=== PATIENT | female | born 1945 | race Caucasian/White ===

== ENCOUNTER 2024-01-16 12:08 | Emergency (ER) | payer OTHER ==
--- OUTSIDE RECORDS SUMMARY | 2024-01-16 12:12 | XMS REPORT | Continuity of Care Document ---
Author Name Unknown Address [address] [facility] [place] [address] [facility] Address [address] [facility] [place] [address] Care Team Providers Care Unbundler Name Role Phone Deni SKAGGS, Alfredo Walsh Primary Care Physician PHILIPP SINGH Attending Clinician Unavailab PHILIPP Orr Attending Clinician Unavailab Alfredo Winn MD Attending Clinician + [phone] Lab, Ang - Db Attending Clinician Unavailable ALFREDO CHEEMA Attending Clinician Alfredo Sheehan MD Attending Clinician + [phone] GEOVANNI SCOTT Attending Clinician Unavailable Geovanni Clifton Attending Clinician [phone] Neema Bethea MA Attending Clinician Unavail able Lucrecia Whitley Attending Clinician [phone] LUCRECIA ZAVALA Attending Clinician Unavailable JAMEY ARAGON Attending Clinician Unavailable Jamey Ballesteros Attending Clinician +[phone] Unknown, Attending Attending Clinician Unavailab lily Wan Unassigned, [place] Attending Clinician U maximoailfrank WALLS_GCBZW_Mindy_S Attending Clinician UnavailTori Peoples PA-C Attending Clinician +[phone] [facility] Attending Clinician Unavailable MARJORIE CHAIDEZ Attending Clinician Unavailable MARJORIE CHAIDEZ Attending Clinician Unavailable Ila White NP Attending Clinician + [phone] Adelaida Garza MD Attending Clinician +[phone] ADELAIDA GARZA Attending Clinician Unavailable ILA WHITE Attending Clinician Unavaila ble Lab, Ang - Db Attending Clinician Unavailable CHARMAINE STEWART Attending Clinician Unavailable Charmaine Stewart MD Attending Clinician [phone] Keron Zimmerman MD Attending Clinician [phone] Kavitha Phelps RN Attending Clinician Unavailab Esa Shaikh DO Attending Clinician [phone] Jeanine Santos DO Attending Clinician +[phone] ESA HINSON Attending Clinician Unavailable MACY MCMILLAN Attending Clinician Unavailable Macy Park Attending Clinician [phone] Radiology Attending Clinician Unavailable RADIOLOGY Attending Clinician Unavailable Marcus Lockett MD Attending Clinician [phone] Gilberto_S_CHERELLE Attending Clinician Unavailable Ige-Odunjose_J_AH Attending Clinician Unavailable GEOVANNI SCOTT Admitting Clinician Unavailable GC_GCBZW_Kadiyala_S Admitting Clinician Unavaila PHILIPP [place] Admitting Clinician Unavailab Philipp Orr MD Admitting Clinician [phone] Jeanine Santos DO Admitting Clinician [phone] JEANINE SANTOS Admitting Clinician Unavailable Kelsey Admitting Clinician Unavailable Ige-Sobeida_J_AH Admitting Clinician Unavailable Payers Payer Name Policy Type Policy Number Effective Date Expirati on Date Source [facility] ([facility]IC[facility] REPLACEMENT/ADVANT AGE - HMO) [id number] 2019 00:00:00 Problems Condition Name Condition Details Condition Category Status Onset Date Resolution Date Last Treatment Date Treating Clinician Comments Source Bronchitis Bronchitis Disease Active 09-28 00:00: 00 [facility] Neck fullness Neck fullness Disease Active 09-28 00:00: 00 [facility] Oropharyng eal dysphagia Oropharyng eal dysphagia Disease Active 09-28 00:00: 00 [facility] Family history of thyroid cancer Family history of thyroid cancer Disease Active 2024-0 5-14 00:00: 00 [facility] Rash and other nonspecifi c skin eruption Rash and other nonspecifi c skin eruption Disease Active 0 4-16 00:00: 00 [facility] Essential hypertensi on Essential hypertensi on Disease Active 0 4-16 00:00: 00 [facility] Condyloma acuminatum of vulva Condyloma acuminatum of vulva Disease Active 0 8-17 00:00: 00 [facility] Vulvar mass Vulvar mass Disease Active 0 6-07 00:00: 00 [facility] BMI 38.0-38.9, adult BMI 38.0-38.9, adult Disease Active 0 6-07 00:00: 00 [facility] Chest pressure Chest pressure Disease Active 0 5-25 00:00: 00 [facility] Morbid obesity Morbid obesity Disease Active 0 5-25 00:00: 00 [facility] Family history of early CAD Family history of early CAD Disease Active 0 5-25 00:00: 00 [facility] Leg edema Leg edema Disease Active 0 5-25 00:00: 00 [facility] PAD (periphera l artery disease) PAD (periphera l artery disease) Disease Active 0 5-25 00:00: 00 [facility] Chronic hepatitis C Chronic hepatitis C Disease Active 0 - 00:00: 00 [facility] Fibromyalg ia Fibromyalg ia Disease Active 0 -23 00:00: 00 [facility] Lupus erythemato liu Lupus erythemato liu Disease Active 0 -23 00:00: 00 [facility] Seasonal allergies Seasonal allergies Disease Active 0 -23 00:00: 00 [facility] Senile purpura Senile purpura Disease Active 0 3-23 00:00: 00 [facility] Peripheral vascular disease Peripheral vascular disease Disease Active 0 6-25 00:00: 00 [facility] Severe obesity Severe obesity Disease Active 6-25 00:00: 00 [facility] Allergies, Adverse Reactions, Alerts Allergy Name Allergy Type Status Severity Reaction(s) Onset Date Inactive Date Treating Clinician Comments Source IBUPROFE N DRUG INGREDI Active Other-Cmnt 01-22 00:00: 00 [facility] Ibuprofe n Propensi ty to adverse reaction s Active Other - See comments 01-22 00:00: 00 Pain [facility] GADOLINI UM-CONTA INING CONTRAST MEDIA Drug Class Active High SOB 8 00:00: 00 [facility] IODINATE D CONTRAST MEDIA Drug Class Active High SOB 8 00:00: 00 [facility] Gadolini um-Conta ining Contrast Media Drug Allergy Active Swelling 01-12 00:00: 00 [facility] Iodinate d Contrast Media Drug Allergy Active Swelling 01-12 00:00: 00 [facility] Aspirin Drug Allergy Active Anaphylaxis 06-24 00:00: 00 [facility] Seafood/ Fish Propensi ty to adverse reaction s Active Unknown - See comments 06-24 00:00: 00 [facility] Peanut Propensi ty to adverse reaction s Active Swelling 06-24 00:00: 00 [facility] ASPIRIN DRUG INGREDI Active High Swelling 06-24 00:00: 00 [facility] SEAFOOD/ FISH Food Active Unknown-Cmnt 06-24 00:00: 00 [facility] PEANUT DRUG INGREDI Active Swelling 06-24 00:00: 00 [facility] Aspirin Allergy to substanc e Active Moderate to severe Anaphylaxis [facility] Social History Social Habit Start Date Stop Date Quantity Comments Source Gender identity [facility] Alcoholic beverage intake 2024-01-13 00:00:00 2024-01-13 00:00:00 Lifetime non-drinker (finding) [facility] History of Social function 2023-10-13 00:00:00 2023-10-13 00:00:00 [facility] Alcohol intake 2023-09-01 00:00:00 2023-09-01 00:00:00 Lifetime non-drinker (finding) [facility] Exposure to SARS-CoV-2 (event) 2022-09-27 00:00:00 2022-10-07 10:48:00 Not sure [facility] Tobacco use and exposure 2021-07-11 00:00:00 2021-07-11 00:00:00 Smokeless tobacco non-user [facility] Sex assigned at 1945 00:00:00 1945 00:00:00 [facility] Smoking Status Start Date Stop Date Source Never smoked tobacco [facility] Medications Ordered Medication Name Filled Medication Name Start Date Stop Date Current Medication? Ordering Clinician Indication Dosage Frequency Signature (SIG) Comments Components Source clindamycin 150 mg capsule 01-12 00:00: 00 Yes [id number] 150mg Take 1 capsule by mouth in the morning and 1 capsule at noon and 1 capsule in the evening. [facility] predniSONE 10 mg tablet 17 00:00: 00 Yes [id number] 10mg Take 1 tablet by mouth in the morning. [facility] FUROSEMIDE 40 mg tablet 10-05 00:00: 00 Yes [id number] 40mg TAKE ONE TABLET BY MOUTH EVERY MORNING AND EVENING [facility] AZITHROMYCI N 250 mg tablet 09-28 00:00: 00 10-12 00:00 :00 No [id number] 500MG on day 1, then 250mg days 2-5 [facility] pantoprazol e (PROTONIX) 40 mg EC tablet 09-28 00:00: 00 10-12 00:00 :00 No [id number] 40mg Take 1 tablet by mouth in the morning. [facility] benzonatate 200 mg capsule 09-28 00:00: 00 10-06 04:59 :00 No [id number] 200mg Take 1 capsule by mouth 3 (three) times daily as needed for Cough for up to 7 days. [facility] predniSONE 20 mg tablet 08-27 00:00: 00 10-12 00:00 :00 No [id number] Take one tablet daily for 6 days, then take half tablet daily for the next 6 days, then stop. [facility] triamcinolo ne acetonide 0.1 % ointment 08-27 00:00: 00 08-31 00:00 :00 No [id number] Apply to area(s) 2 (two) times daily for 14 days. [facility] diphenhydra mine HCl (BENADRYL ALLERGY ORAL) 2022-05 012 10:08: 25 Yes Take by mouth as needed. FOR LUPUS FLARE UPS [facility] diphenhydra mine HCl (BENADRYL ALLERGY ORAL) 907 10:14: 05 Yes Take by mouth as needed. FOR LUPUS FLARE UPS [facility] HYDROcodone -acetaminop hen (NORCO 5) 5-325 mg tablet 1 tablet 01-12 22:04: 34 Yes 1{tbl} 1 tablet, Oral, PRN, 1 dose, Starting on Thu01/12/23 at 1704, Until Discontinu ed, Routine, Pain (scale 7-10), DSU Recovery [facility] ibuprofen (IBU) tablet 800 mg 01-12 22:04: 34 Yes 800mg 800 mg, Oral, PRN, 1 dose, Starting on Thu01/12/23 at 1704, Until Discontinu ed, Routine, Pain (scale 4-6), DSU Recovery [facility] acetaminoph en (TYLENOL) tablet 650 mg 01-12 22:04: 34 Yes 650mg 650 mg, Oral, PRN, 1 dose, Starting on Thu01/12/23 at 1704, Until Discontinu ed, Routine, Pain (scale 1-3), DSU Recovery [facility] HYDROmorphO ne (DILAUDID) injection 0.2 mg 01-12 22:04: 34 Yes .2mg 0.2 mg, Slow IV Push, Q5MIN PRN, 10 doses, Starting on Thu01/12/23 at 1704, Until Discontinu ed, Routine, Pain (scale 7-10), PACU
Us e approved by (Faculty): PACU USE -ANESTHESI A SERVICE-HY DROMORPHON E INJECTIONS [facility] FENTanyl PF (SUBLIMAZE (PF)) injection 25 mcg 01-12 22:04: 34 Yes 25ug 25 mcg, Slow IV Push, Q5MIN PRN, 4 doses, Starting on Thu01/12/23 at 1704, Until Discontinu ed, Routine, Pain (scale 4-6), PACU [facility] ondansetron (ZOFRAN (PF)) injection 4 mg 01-12 22:04: 34 Yes 4mg 4 mg, Slow IV Push, PRN, 1 dose, Starting on Thu01/12/23 at 1704, Until Discontinu ed, Routine, Nausea and Vomiting (N/V), PACU [facility] ceFAZolin (ANCEF) 2,000 mg in NaCl 0.9% (NS) 100 mL MINI-BAG 01-12 22:04: 32 01-13 22:03 :32 No 2000mg 2,000 mg, Intravenou s, O.R. HOLDING ONCE, Starting on Thu01/12/23 at 1704, Until Thu01/13/23 at 1703, Administer over 30 Minutes, 100 mL, DSU Pre-op
Reason for Anti-Infec tive: Surgical Prophylaxi s
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
Duration of therapy: within 24 hours of surgery [facility] silver sulfADIAZIN E (SILVADENE) 1 % cream 01-12 21:16: 00 01-12 22:10 :58 No PRN, Starting on Thu01/12/23 at 1616, Until Thu01/12/23 at 1710, Routine, Intra-op [facility] bupivacaine (preserv free) (SENSORCAIN E MPF) 0.25 % (2.5 mg/mL) injection 01-12 21:16: 00 01-12 22:10 :58 No PRN, Starting on Thu01/12/23 at 1616, Until Thu01/12/23 at 1710, Routine, Intra-op [facility] diphenhydra mine HCl (BENADRYL ALLERGY ORAL) 01-12 18:42: 40 10-12 00:00 :00 No Take by mouth as needed. FOR LUPUS FLARE UPS [facility] furosemide 40 mg tablet 01-12 00:00: 00 10-05 00:00 :00 No [id number] 40mg TAKE ONE TABLET BY MOUTH EVERY MORNING AND EVENING [facility] fluconazole 200 mg tablet 01-12 00:00: 00 08-31 00:00 :00 No [id number] 200mg Take 1 tablet by mouth in the morning. [facility] nystatin 100,000 unit/gram powder 01-12 00:00: 00 08-31 00:00 :00 No [id number] Apply to the affected areas (abdomen) 2 to 3 times daily until healing is complete [facility] acetaminoph en (TYLENOL) 325 mg tablet 01-12 00:00: 00 08-31 00:00 :00 No [id number] 650mg Take 2 tablets by mouth every 6 (six) hours as needed for Pain (scale 1-3). [facility] ibuprofen 600 mg tablet 01-12 00:00: 00 08-31 00:00 :00 No [id number] 600mg Take 1 tablet by mouth every 6 (six) hours as needed for Pain (scale 4-6) or Alternate with Abernathy for pain scale 4-6. [facility] HYDROcodone -acetaminop hen 5-325 mg tablet 01-12 00:00: 00 01-20 04:59 :00 No [id number] 1{tbl} Take 1 tablet by mouth every 6 (six) hours as needed for Pain (scale 7-10) for up to 7 days. Indication s: acute pain [facility] diphenhydra mine HCl (BENADRYL ALLERGY ORAL) 01-06 09:56: 46 Yes Take by mouth as needed. FOR LUPUS FLARE UPS [facility] lidocaine 2 % mucosal jelly 10-24 00:00: 00 08-31 00:00 :00 No [id number] 5mL Apply 2.5 Inches to area(s) every 6 (six) hours as needed (Pain). Apply 5mls to area every 6 hours as needed fro pain [facility] lidocaine 2 % mucosal jelly 10-22 00:00: 00 10-24 00:00 :00 No [id number] 5mL Apply 2.5 Inches to area(s) every 6 (six) hours as needed (Pain). Apply 5mls to area every 6 hours as needed fro pain [facility] gabapentin 400 mg capsule 10-07 11:01: 50 10-07 00:00 :00 No 400mg Take 400 mg by mouth as needed. [facility] traMADoL 50 mg tablet 10-07 11:01: 47 10-07 00:00 :00 No 50mg Take 50 mg by mouth every 6 (six) hours as needed. [facility] gabapentin 400 mg capsule 12-09 10:23: 46 Yes 400mg Take 400 mg by mouth as needed. [facility] traMADoL 50 mg tablet 12-09 10:22: 45 Yes 50mg Take 50 mg by mouth every 6 (six) hours as needed. [facility] furosemide 40 mg tablet 11-27 00:00: 00 01-12 00:00 :00 No [id number] 40mg Take 1 tablet by mouth every morning and evening. [facility] BENADRYL ALLERGY 25 mg tablet 06-24 00:00: 00 10-07 00:00 :00 No 50mg Take 2 tablets by mouth every 6 (six) hours as needed for Itching or Allergies. [facility] furosemide 20 mg tablet furosemide 20 mg tablet No furosemide 20 mg tablet [facility] gabapentin 300 mg capsule TAKE 1 CAPSULE BY MOUTH TWICE DAILY gabapentin 300 mg capsule TAKE 1 CAPSULE BY MOUTH TWICE DAILY No gabapentin 300 mg capsule TAKE 1 CAPSULE BY MOUTH TWICE DAILY [facility] Immunizations Ordered Immunization Name Filled Immunization Name Date Status Comments Source TDAP 2021-07-11 00:00:00 Completed [facility] TDAP 2021-07-11 00:00:00 Completed [facility] TDAP 2021-07-11 00:00:00 Completed [facility] TDAP 2021-07-11 00:00:00 Completed [facility] TDAP 2021-07-11 00:00:00 Completed [facility] TDAP 2021-07-11 00:00:00 Completed [facility] TDAP 2021-07-11 00:00:00 Completed [facility] TDAP 2021-07-11 00:00:00 Completed [facility] TDAP 2021-07-11 00:00:00 Completed [facility] TDAP 2021-07-11 00:00:00 Completed [facility] TDAP 2021-07-11 00:00:00 Completed [facility] TDAP 2021-07-11 00:00:00 Completed [facility] TDAP 2021-07-11 00:00:00 Completed [facility] TDAP 2021-07-11 00:00:00 Completed [facility] TDAP 2021-07-11 00:00:00 Completed [facility] TDAP 2021-07-11 00:00:00 Completed [facility] TDAP 2021-07-11 00:00:00 Completed [facility] TDAP 2021-07-11 00:00:00 Completed [facility] TDAP 2021-07-11 00:00:00 Completed [facility] TDAP 2021-07-11 00:00:00 Completed [facility] TDAP 2021-07-11 00:00:00 Completed [facility] TDAP 2021-07-11 00:00:00 Completed [facility] TDAP 2021-07-11 00:00:00 Completed [facility] TDAP 2021-07-11 00:00:00 Completed [facility] TDAP 2021-07-11 00:00:00 Completed [facility] TDAP 2021-07-11 00:00:00 Completed [facility] TDAP 2021-07-11 00:00:00 Completed [facility] TDAP 2021-07-11 00:00:00 Completed [facility] TDAP 2021-07-11 00:00:00 Completed [facility] TDAP 2021-07-11 00:00:00 Completed [facility] TDAP 2021-07-11 00:00:00 Completed [facility] TDAP 2021-07-11 00:00:00 Completed [facility] TDAP 2021-07-11 00:00:00 Completed [facility] TDAP 2021-07-11 00:00:00 Completed [facility] TDAP 2021-07-11 00:00:00 Completed [facility] TDAP 2021-07-11 00:00:00 Completed [facility] TDAP 2021-07-11 00:00:00 Completed [facility] TDAP 2021-07-11 00:00:00 Completed [facility] TDAP 2021-07-11 00:00:00 Completed [facility] TDAP 2021-07-11 00:00:00 Completed [facility] TDAP 2021-07-11 00:00:00 Completed [facility] TDAP Unknown Completed [facility] TDAP Unknown Completed [facility] TDAP Unknown Completed [facility] TDAP Unknown Completed [facility] TDAP Unknown Completed [facility] TDAP Unknown Completed [facility] TDAP Unknown Completed [facility] TDAP Unknown Completed [facility] TDAP Unknown Completed [facility] TDAP Unknown Completed [facility] TDAP Unknown Completed [facility] TDAP Unknown Completed [facility] TDAP Unknown Completed [facility] TDAP Unknown Completed [facility] TDAP Unknown Completed [facility] TDAP Unknown Completed [facility] TDAP Unknown Completed [facility] TDAP Unknown Completed [facility] TDAP Unknown Completed [facility] TDAP Unknown Completed [facility] TDAP Unknown Completed [facility] TDAP Unknown Completed [facility] TDAP Unknown Completed [facility] TDAP Unknown Completed [facility] TDAP Unknown Completed [facility] TDAP Unknown Completed [facility] Vital Signs Vital Name Observation Time Observation Value Comments Noé levy Systolic blood pressure 2024-01-13 13:58:00 126 mm[Hg] [facility] Diastolic blood pressure 2024-01-13 13:58:00 75 mm[Hg] [facility] Heart rate 2024-01-13 13:58:00 78 /min [facility] Body temperature 2024-01-13 13:58:00 36.83 Donna [facility] Body height 2024-01-13 13:58:00 160 cm [facility] Body weight 2024-01-13 13:58:00 99.791 kg [facility] BMI 2024-01-13 13:58:00 38.97 kg/m2 [facility] Systolic blood pressure 2023-11-02 18:02:00 142 mm[Hg] [facility] Diastolic blood pressure 2023-11-02 18:02:00 80 mm[Hg] [facility] Heart rate 2023-11-02 18:01:00 80 /min [facility] Body temperature 2023-11-02 18:01:00 36.61 Donna [facility] Body weight 2023-11-02 18:01:00 101.606 kg [facility] BMI 2023-11-02 18:01:00 40.97 kg/m2 [facility] Systolic blood pressure 2023-10-13 15:25:00 141 mm[Hg] [facility] Diastolic blood pressure 2023-10-13 15:25:00 69 mm[Hg] [facility] Heart rate 2023-10-13 15:24:00 88 /min [facility] Body temperature 2023-10-13 15:24:00 36.78 Donna [facility] Body height 2023-10-13 15:24:00 157.5 cm [facility] Body weight 2023-10-13 15:24:00 101.152 kg [facility] BMI 2023-10-13 15:24:00 40.79 kg/m2 [facility] Systolic blood pressure 2023-09-29 19:39:00 153 mm[Hg] [facility] Diastolic blood pressure 2023-09-29 19:39:00 75 mm[Hg] [facility] Heart rate 2023-09-29 19:38:00 88 /min [facility] Body temperature 2023-09-29 19:38:00 37.17 Donna [facility] Respiratory rate 2023-09-29 19:38:00 18 /min [facility] Body height 2023-09-29 19:38:00 162.6 cm [facility] Body weight 2023-09-29 19:38:00 102.241 kg [facility] BMI 2023-09-29 19:38:00 38.69 kg/m2 [facility] Oxygen saturation in Arterial blood by Pulse oximetry 2023-09-29 19:38:00 98 /min [facility] Systolic blood pressure 2023-09-01 21:25:00 144 mm[Hg] [facility] Diastolic blood pressure 2023-09-01 21:25:00 66 mm[Hg] [facility] Heart rate 2023-09-01 21:25:00 85 /[facility] Body weight 2023-09-01 21:25:00 102.83 kg [facility] BMI 2023-09-01 21:25:00 38.91 kg/m2 [facility] Oxygen saturation in Arterial blood by Pulse oximetry 2023-09-01 21:25:00 94 /min [facility] Systolic blood pressure 2023-08-29 01:57:00 175 mm[Hg] [facility] Diastolic blood pressure 2023-08-29 01:57:00 78 mm[Hg] [facility] Heart rate 2023-08-29 01:57:00 89 /min [facility] Body temperature 2023-08-29 01:57:00 37.11 Donna [facility] Respiratory rate 2023-08-29 01:57:00 16 /min [facility] Body weight 2023-08-29 01:57:00 105.688 kg [facility] BMI 2023-08-29 01:57:00 39.99 kg/m2 [facility] Oxygen saturation in Arterial blood by Pulse oximetry 2023-08-29 01:57:00 95 /min [facility] Systolic blood pressure 2023-02-26 15:07:00 135 mm[Hg] [facility] Diastolic blood pressure 2023-02-26 15:07:00 68 mm[Hg] [facility] Heart rate 2023-02-26 15:07:00 72 /min [facility] Body temperature 2023-02-26 15:07:00 36.17 Donna [facility] Respiratory rate 2023-02-26 15:07:00 19 /min [facility] Body weight 2023-02-26 15:07:00 100.517 kg [facility] BMI 2023-02-26 15:07:00 38.04 kg/m2 [facility] Oxygen saturation in Arterial blood by Pulse oximetry 2023-02-26 15:07:00 97 /min [facility] Systolic blood pressure 2023-01-22 15:13:00 123 mm[Hg] [facility] Diastolic blood pressure 2023-01-22 15:13:00 73 mm[Hg] [facility] Heart rate 2023-01-22 15:13:00 74 /[facility] Body temperature 2023-01-22 15:13:00 36.44 Donna [facility] Respiratory rate 2023-01-22 15:13:00 18 /min [facility] Body weight 2023-01-22 15:13:00 99.61 kg [facility] BMI 2023-01-22 15:13:00 37.69 kg/m2 [facility] Oxygen saturation in Arterial blood by Pulse oximetry 2023-01-22 15:13:00 94 /min [facility] Oxygen saturation in Arterial blood by Pulse oximetry 2023-01-12 23:30:00 96 /min [facility] Systolic blood pressure 2023-01-12 23:00:00 131 mm[Hg] [facility] Diastolic blood pressure 2023-01-12 23:00:00 66 mm[Hg] [facility] Respiratory rate 2023-01-12 23:00:00 10 /min [facility] Heart rate 2023-01-12 22:04:00 68 /min [facility] Body temperature 2023-01-12 22:04:00 36.22 Donna [facility] Body height 2023-01-12 16:43:00 162.6 cm [facility] Body weight 2023-01-12 16:43:00 100.6 kg [facility] BMI 2023-01-12 16:43:00 38.07 kg/m2 [facility] Systolic blood pressure 2023-01-12 22:15:00 136 mm[Hg] General acute hospital Diastolic blood pressure 2023-01-12 22:15:00 67 mm[Hg] General acute hospital Respiratory rate 2023-01-12 22:15:00 12 /min [facility] Oxygen saturation in Arterial blood by Pulse oximetry 2023-01-12 22:15:00 100 /min General acute hospital Heart rate 2023-01-12 22:04:00 68 /min [facility] Body temperature 2023-01-12 22:04:00 36.22 Donna [facility] Body height 2023-01-12 16:43:00 162.6 cm [facility] Body weight 2023-01-12 16:43:00 100.6 kg [facility] BMI 2023-01-12 16:43:00 38.07 kg/m2 [facility] Body height 2022-12-29 16:44:00 157.2 cm [facility] Body weight 2022-12-29 16:44:00 100.336 kg [facility] BMI 2022-12-29 16:44:00 40.60 kg/m2 [facility] Systolic blood pressure 2022-12-29 16:28:00 133 mm[Hg] General acute hospital Diastolic blood pressure 2022-12-29 16:28:00 77 mm[Hg] General acute hospital Heart rate 2022-12-29 16:28:00 81 /min [facility] Body temperature 2022-12-29 16:28:00 36.17 Donna [facility] Respiratory rate 2022-12-29 16:28:00 19 /min [facility] Oxygen saturation in Arterial blood by Pulse oximetry 2022-12-29 16:28:00 97 /min General acute hospital Systolic blood pressure 2022-11-20 19:24:00 123 mm[Hg] General acute hospital Diastolic blood pressure 2022-11-20 19:24:00 69 mm[Hg] General acute hospital Heart rate 2022-11-20 19:24:00 76 /min [facility] Body temperature 2022-11-20 19:24:00 36.78 Donna [facility] Body height 2022-11-20 19:24:00 162.6 cm [facility] Body weight 2022-11-20 19:24:00 100.789 kg [facility] BMI 2022-11-20 19:24:00 38.14 kg/m2 [facility] Systolic blood pressure 2022-10-22 19:30:00 131 mm[Hg] General acute hospital Diastolic blood pressure 2022-10-22 19:30:00 69 mm[Hg] General acute hospital Heart rate 2022-10-22 19:26:00 84 /min [facility] Body temperature 2022-10-22 19:26:00 37 Donna [facility] Respiratory rate 2022-10-22 19:26:00 18 /min [facility] Body height 2022-10-22 19:26:00 162.6 cm [facility] Body weight 2022-10-22 19:26:00 103.511 kg [facility] BMI 2022-10-22 19:26:00 39.17 [facility] 2022-10-22 14:28:00 132 mm[Hg] General acute hospital Diastolic blood pressure 2022-10-22 14:28:00 73 mm[Hg] General acute hospital Heart rate 2022-10-22 14:28:00 76 /min [facility] Res[facility] rate 2022-10-22 14:28:00 18 /min [facility] Body height 2022-10-22 14:28:00 162.6 cm [facility] Body weight 2022-10-22 14:28:00 102.967 kg [facility] BMI 2022-10-22 14:28:00 38.96 kg/m2 [facility] Systolic blood pressure 2022-10-07 16:00:00 138 mm[Hg] General acute hospital Diastolic blood pressure 2022-10-07 16:00:00 79 mm[Hg] General acute hospital Heart rate 2022-10-07 16:00:00 84 /min [facility] Body temperature 2022-10-07 16:00:00 36.83 Donna [facility] Body height 2022-10-07 16:00:00 162.6 cm [facility] Body weight 2022-10-07 16:00:00 102.513 kg [facility] BMI 2022-10-07 16:00:00 38.79 kg/m2 [facility] Systolic blood pressure 2021-12-09 15:26:00 135 mm[Hg] General acute hospital Diastolic blood pressure 2021-12-09 15:26:00 66 mm[Hg] General acute hospital Heart rate 2021-12-09 15:26:00 77 /min [facility] Body temperature 2021-12-09 15:26:00 36.39 Donna [facility] Respiratory rate 2021-12-09 15:26:00 16 /min [facility] Body height 2021-12-09 15:26:00 162.6 cm [facility] Body weight 2021-12-09 15:26:00 105.008 kg [facility] BMI 2021-12-09 15:26:00 39.74 kg/m2 [facility] Oxygen saturation in Arterial blood by Pulse oximetry 2021-12-09 15:26:00 95 /min [place] [facility] BP Diastolic 2020-08-07 00:00:00 80 mm[Hg] [facility] Height 2020-08-07 00:00:00 64 [in_i] Granados ge [facility] BMI (Body Mass Index) 2020-08-07 00:00:00 39.3 kg/m2 [facility] BP Systolic 2020-08-07 00:00:00 130 mm[Hg] [facility] Body Weight 2020-08-07 00:00:00 229 [lb_av] Mario [facility] Procedures Procedure Date / Time Performed Performing Clinician Source CT SOFT TISSUE NECK WO CONTRAST 2023-10-19 14:10:02 Geovanni Scott [facility] HEAD NECK 2023-10-08 18:35:51 Geovanni Scott [facility] AUTHORIZATION FOR RELEASE OF PHI 2023-04-14 06:01:00 Doctor Unassigned, [place] [facility] WIDE LOCAL VULVAR LESION EXCISION 2023-01-12 20:02:00 Philipp Singh [facility] ABORH CONFIRMATION (LAB ONLY) 2023-01-12 17:43:00 Philipp Singh [facility] ABORH CONFIRMATION (LAB ONLY) 2023-01-12 17:43:00 Philipp Singh [facility] PROTHROMBIN TIME / INR 2023-01-12 17:13:00 Moustapha Norman [facility] HB ABO GROUPING 2023-01-12 17:13:00 Lupe Zimmerman [facility] PROTHROMBIN TIME / INR 2023-01-12 17:13:00 Moustapha Norman [facility] HB ABO GROUPING 2023-01-12 17:13:00 Lupe Zimmerman [facility] ASSIGNMENT OF BENEFITS 2023-01-12 16:20:51 Docto r Unassigned, [place] [facility] PAP SMEAR-LIQUID BASED-CP 2022-12-29 18:17:00 Lupe Zimmerman [facility] DISCLOSURE AND CONSENT, MEDICAL AND SURGICAL PROCEDURES 2022-12-29 05:01:00 Doctor Unassigned, [place] [facility] DOWNTIME AMBULATORY DOCUMENTS 2022-12-29 05:01:00 Doctor Unassigned, [place] [facility] DISCLOSURE AND CONSENT, MEDICAL AND SURGICAL PROCEDURES 2022-12-29 05:01:00 Doctor Unassigned, [place] [facility] DOWNTIME AMBULATORY DOCUMENTS 2022-12-29 05:01:00 Doctor Unassigned, [place] [facility] DISCLOSURE AND CONSENT MEDICAL & SURGICAL PROCEDURES - FEMALM 2022-11-20 05:01:00 Doctor Unassigned, [place] [facility] POCT TEST 2022-11-20 00:00:00 Adelaida Garza [facility] CONSENT/REFUSAL FOR DIAGNOSIS AND TREATMENT 2022-10-07 15:49:52 Doctor Unassigned, [place] [facility] MEDICATION CORRESPONDENCE 2021 05:01:00 Do ctor Unassigned, [place] [facility] Biopsy of Liver [facility] Tub[facility] Open Reduction of Fracture of Femur [facility] Tonsillectomy [facility] Ligation of Fallopian Tube [facility] Practice Screening for Malignant Neoplasm of Colon [facility] Encounters Start Date/Time End Date/Time Encounter Type Admission Type Attending Clinicians Care Facility Care Department Encounter ID Source 2024-01-14 00:00:00 2024-01-15 13:22:05 Telephone Alfredo Cheema [facility]?LUZRemy [facility] 1.2.840.114 350.1.13.10 4.2.7.2.686 [id number] [facility] 2024-01-14 00:00:00 2024-01-14 08:58:31 Telephone Deni Alfredo 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 Metalworker Visit Lab, Dayday Trammell Alfredo Cheema [facility], Dayday Trammell [facility] 1.2.840.114 350.1.13.10 4.2.7.2.686 [id number] [facility] 2024-01-13 10:00:00 2024-01-13 10:00:00 Outpatient R DENI ALFREDO [facility] [id number] [facility] 2024-01-13 09:45:00 2024-01-13 10:00:00 Office Visit [facility] 1..840.114 350.1.13.10 4.2.7.2.686 [id number] [facility] 2023-11-02 13:00:00 2023-11-02 13:15:00 Office Visit Alfredo Cheema [facility] 1..840.114 350.1.13.10 4.2.7.2.686 [id number] [facility] 2023-11-02 13:00:00 2023-11-02 13:00:00 Outpatient R TITADESMONDALFREDO [facility] [id number] [facility] 2023-10-19 08:54:23 2023-10-19 23:59:00 Outpatient R GEOVANNI SCOTT [facility] [id number] [facility] 2023-10-19 08:54:23 2023-10-19 23:59:00 Hospital Encounter Geovanni Scott [facility] 1.2.840.114 350.1.13.10 4.2.7.2.686 [id number] [facility] 2023-10-19 00:00:00 2023-10-19 14:41:26 Telephone Geovanni Scott [facility] 1.2.840.114 350.1.13.10 4.2.7.2.686 [id number] [facility] 2023-10-13 10:30:00 2023-10-13 11:00:00 Office Visit Alfredo Cheema [facility]?YOGESH [facility] 1.2840.114 350.1.13.10 4.2.7.2.686 [id number] [facility] 2023-10-13 10:30:00 2023-10-13 10:30:00 Outpatient R ALFREDO CHEEMA [facility] [id number] [facility] 2023-10-13 00:00:00 2023-10-13 09:17:24 Pre Visit Outreach Neema Bethea 1.2.840.114 350.1.13.10 4.2.7.2.686 [id number] [facility] 2023-10-09 00:00:00 2023-10-09 16:40:32 Telephone Geovanni Scott [facility]OS [facility] 1.2.840.114 350.1.13.10 4.2.7.2.686 [id number] [facility] 2023-10-08 12:31:20 2023-10-08 23:59:00 Outpatient R RAINAGEOVANNI Alberto [facility] [id number] [facility] 2023-10-08 12:31:20 2023-10-08 23:59:00 Hospital Encounter Geovanni Scott [facility] 1.2.840.114 350.1.13.10 4.2.7.2.686 [id number] [facility] 2023-10-06 08:30:00 2023-10-06 08:30:00 Outpatient R ALFREDO CHEEMA [facility] [id number] [facility] 2023-10-06 00:00:00 2023-10-06 07:52:20 Refill Deni Alfredo [facility] 1.2840.114 350.1.13.10 4.2.7.2.686 [id number] [facility] 2023-09-29 14:30:00 2023-09-29 15:07:58 Outpatient R GEOVANNI SCOTT [facility] [id number] [facility] 2023-09-29 14:30:00 2023-09-29 15:07:58 Office Visit Geovanni Scott [facility] 1.840.114 350.1.13.10 4.2.7.2.686 [id number] [facility] 2023-09-12 00:00:00 2023-09-12 00:00:00 Letter (Out) [facility] 1..114 350.1.13.10 4.2.7.2.686 [id number] [facility] 2023-09-10 00:00:00 2023-09-10 00:00:00 Telephone Alfredo Cheema [facility] 1.84.114 350.1.13.10 4.2.7.2.686 [id number] [facility] 2023-09-01 16:30:00 2023-09-01 16:57:14 Office Visit Lucrecia Zavala [facility] 1.284.114 350.1.13.10 4.2.7.2.686 [id number] [facility] 2023-09-01 16:30:00 2023-09-01 16:57:14 Outpatient R LUCRCEIA ZAVALA [facility] [id number] [facility] 2023-08-28 20:40:00 2023-08-28 21:02:09 Outpatient R JAMEY ARAGON [facility] [id number] [facility] 2023-08-28 20:40:00 2023-08-28 21:02:09 Urgent Care Jamey Aragon Unknown, Attending [facility] 1..840.114 350.1.13.10 4.2.7.2.686 [id number] [facility] 2023-05-25 08:30:00 2023-05-25 08:30:00 Outpatient ALFREDO FOSTER [facility] [id number] [facility] 2023-04-14 00:00:00 2023-04-14 00:00:00 Orders Only Doctor Unassigned, [place] [facility] 1..840.114 350.1.13.10 4.2.7.2.686 [id number] [facility] 2023-03-17 00:00:00 2023-03-17 00:00:00 Outpatient GC_GCBZW_Ka diyala_S [facility] [id number] [facility] 2023-02-26 11:30:00 2023-02-26 11:30:00 Office Visit Philipp Singh [facility] ..840.114 350.1.13.10 4.2.7.2.686 [id number] [facility] 2023-02-26 11:30:00 2023-02-26 10:36:32 Outpatient PHILIPP WALDROP [facility] [id number] [facility] 2023-01-22 11:00:00 2023-01-22 11:00:00 Office Visit BaltazararsenioPhilipp [facility] 1..114 350.1.13.10 4.2.7.2.686 [id number] [facility] 2023-01-22 11:00:00 2023-01-22 10:51:04 Outpatient R PHILIPP SINGH [facility] [id number] [facility] 2023-01-20 00:00:00 2023-01-20 00:00:00 Telephone Tori Reid [facility] 1.0.114 350.1.13.10 4.2.7.2.686 [id number] [facility] 2023-01-15 00:00:00 2023-01-15 00:00:00 Telephone KayPhilipp [facility] 1..114 350.1.13.10 4.2.7.2.686 [id number] [facility] 2023-01-12 11:29:00 2023-01-12 18:37:00 [facility] [id number] [facility] 2023-01-12 11:29:00 2023-01-12 18:37:00 [facility] 1.84.114 350.1.13.10 4.2.7.2.686 [id number] [facility] 2023-01-12 15:06:00 2023-01-12 17:15:00 [facility] 1.84.114 350.1.13.10 4.2.7.2.686 [id number] [facility] 2023-01-12 00:00:00 2023-01-12 00:00:00 Orders Only Doctor Unassigned, [place] [facility] 1.840.114 350.1.13.10 4.2.7.2.686 [id number] [facility] 2023-01-10 00:00:00 2023-01-10 00:00:00 Natasha Cheema Alfredo Walsh [facility] 1.840.114 350.1.13.10 4.2.7.2.686 [id number] [facility] 2023-01-01 00:00:00 2023-01-01 00:00:00 Case Management Tori Reid [facility] 1.0.114 350.1.13.10 4.2.7.2.686 [id number] [facility] 2022-12-29 14:45:00 2022-12-29 15:00:00 Duralumin Metalworker Visit [facility] Philipp Singh [facility] 1.0.114 350.1.13.10 4.2.7.2.686 [id number] [facility] 2022-12-29 13:00:00 2022-12-29 13:17:10 Outpatient R PHILIPP SINGH [facility] [id number] [facility] 2022-12-29 13:00:00 2022-12-29 13:17:10 Office Visit Philipp Singh [facility] 1.0.114 350.1.13.10 4.2.7.2.686 [id number] [facility] 2022-12-16 00:00:00 2022-12-16 00:00:00 Telephone Ila White [facility] 1.840.114 350.1.13.10 4.2.7.2.686 [id number] [facility] 2022-11-25 00:00:00 2022-11-25 00:00:00 Telephone Ila White [facility] 1.2840.114 350.1.13.10 4.2.7.2.686 [id number] [facility] 2022-11-20 14:30:00 2022-11-20 15:00:00 Office Visit Adfranklin Adelaida Crowe [facility] 1.2.840.114 350.1.13.10 4.2.7.2.686 [id number] [facility] 2022-11-20 14:30:00 2022-11-20 14:30:00 Outpatient R ADELAIDA GARZA [facility] [id number] [facility] 2022-11-20 00:00:00 2022-11-20 00:00:00 Orders Only Doctor Unassigned, [place] [facility] 1.2.840.114 350.1.13.10 4.2.7.2.686 [id number] [facility] 2022-11-12 00:00:00 2022-11-12 00:00:00 Telephone AdAdelaida reid [facility] 1.2.840.114 350.1.13.10 4.2.7.2.686 [id number] [facility] 2022-10-23 00:00:00 2022-10-23 00:00:00 Telephone AdAdelaida reid [facility] 1.2.840.114 350.1.13.10 4.2.7.2.686 [id number] [facility] 2022-10-22 14:00:00 2022-10-22 15:24:45 Outpatient R ADELAIDA GARZA [facility] [id number] [facility] 2022-10-22 14:00:00 2022-10-22 15:24:45 Office Visit [facility] 1.2840.114 350.1.13.10 4.2.7.2.686 [id number] [facility] 2022-10-22 09:30:00 2022-10-22 09:49:24 Office Visit Ila White [facility] 1.2.114 350.1.13.10 4.2.7.2.686 [id number] [facility] 2022-10-08 00:00:00 2022-10-08 00:00:00 Telephone Alfredo Cheema [facility]?YOGESH [facility] 1.284.114 350.1.13.10 4.2.7.2.686 [id number] [facility] 2022-10-07 11:30:00 2022-10-07 11:45:00 Duralumin Metalworker Visit Lab, Dayday Cheema [facility] 1.284.114 350.1.13.10 4.2.7.2.686 [id number] [facility] 2022-10-07 11:00:00 2022-10-07 11:16:49 Outpatient R ALFREDO CHEEMA [facility] [id number] [facility] 2022-10-07 11:00:00 2022-10-07 11:16:49 Office Visit Alfredo Cheema [facility] 1.284.114 350.1.13.10 4.2.7.2.686 [id number] [facility] 2022-10-07 00:00:00 2022-10-07 00:00:00 Orders Only Doctor Unassigned, [place] [facility] 1.2.840.114 350.1.13.10 4.2.7.2.686 [id number] [facility] 2022-01-06 00:00:00 2022-01-06 00:00:00 Telephone Lucrecia Zavala [facility] 1.114 350.1.13.10 4.2.7.2.686 [id number] [facility] 2021-12-12 15:00:00 2021-12-12 15:00:00 Outpatient R IFTIKHAR [facility] [id number] [facility] 2021-12-09 10:20:00 2021-12-09 10:40:00 [facility] 1.114 350.1.13.10 4.2.7.2.686 [id number] [facility] 2021-12-09 10:20:00 2021-12-09 10:20:00 [facility] [id number] [facility] 2021 00:00:00 2021 00:00:00 Telephone Alfred[facility]YOGESH [facility] 1.114 350.1.13.10 4.2.7.2.686 [id number] [facility] 2021 00:00:00 2021 00:00:00 Orders Only Doctor Unassigned, [place] [facility] 1.114 350.1.13.10 4.2.7.2.686 [id number] [facility] 2021-12-05 00:00:00 2021-12-05 00:00:00 Telephone Alfredo Cheema [facility] 1.2840.114 350.1.13.10 4.2.7.2.686 [id number] [facility] 2021-11-27 00:00:00 2021-11-27 00:00:00 Natasha ZimmermanKeron [facility]?YOGESH [facility] 1.2840.114 350.1.13.10 4.2.7.2.686 [id number] [facility] 2021-11-27 00:00:00 2021-11-27 00:00:00 Telephone Alfredo Cheema [facility] 1.20.114 350.1.13.10 4.2.7.2.686 [id number] [facility] 2021-11-15 12:26:15 2021-11-15 23:59:00 Hospital [facility] 1.0.114 350.1.13.10 4.2.7.2.686 [id number] [facility] 2021-11-15 12:25:20 2021-11-15 12:25:20 [facility] [id number] [facility] 2021-11-15 12:25:20 2021-11-15 12:25:20 [facility] 1.840.114 350.1.13.10 4.2.7.2.686 [id number] [facility] 2021-11-07 00:00:00 2021-11-07 00:00:00 Telephone Alfredo Cheema [facility] 1.2840.114 350.1.13.10 4.2.7.2.686 [id number] [facility] 2021-11-04 00:00:00 2021-11-04 00:00:00 Refill Alfredo Cheema [facility]?YOGESH [facility] 1.2.840.114 350.1.13.10 4.2.7.2.686 [id number] [facility] 2021-10-21 14:30:00 2021-10-21 15:00:00 Office Visit Alfredo Cheema [facility]?YOGESH [facility] 1.2.840.114 [id number] 4.2.7.2.686 [id number] [facility] 2021-10-21 14:30:00 2021-10-21 14:30:00 Outpatient ALFREDO FOSTER [facility] [id number] [facility] 2021-10-21 14:30:00 2021-10-21 14:30:00 Outpatient ALFREDO FOSTER [facility] [id number] [facility] 2021-10-15 00:00:00 2021-10-15 00:00:00 Transition of Care Kavitha Phelps [facility]DRO [facility] [id number] 350.1.13.10 4.2.7.2.686 [id number] [facility] 2021-10-09 09:53:00 2021-10-11 12:25:00 Emergency Esa Hinson [facility] 1.2.840.114 350.1.13.10 4.2.7.2.686 [id number] [facility] 2021-10-09 09:53:16 2021-10-09 09:53:16 Outpatient ESA MINOR [facility] [id number] [facility] 2021-10-09 08:30:00 2021-10-09 09:01:13 Outpatient MACY CORONA [facility] [id number] [facility] 2021-10-09 08:30:00 2021-10-09 09:01:13 Office Visit Patt Macy Remy [facility]?YOGESH [facility] [id number] [id number] [id number] [id number] [facility] 2021-10-09 00:00:00 2021-10-09 00:00:00 Orders Only Doctor Unassigned, [place] [facility] [place] CAMPUS 1.2840.114 350.1.13.10 4.2.7.2.686 [id number] [facility] 2021-09-12 00:00:00 2021-09-12 00:00:00 [facility] 1.2840.114 350.1.13.10 4.2.7.2.686 [id number] [facility] 2021-08-08 00:00:00 2021-08-08 00:00:00 [facility] 1.2840.114 350.1.13.10 4.2.7.2.686 [id number] [facility] 2021-08-08 00:00:00 2021-08-08 00:00:00 [facility] 1.2840.114 350.1.13.10 4.2.7.2.686 [id number] [facility] 2021-08-08 00:00:00 2021-08-08 00:00:00 Orders Only Doctor Unassigned, [place] [facility] 1.2840.114 350.1.13.10 4.2.7.2.686 [id number] [facility] 2021-07-19 09:18:05 2021-07-19 23:59:00 Hospital Encounter Lucrecia Zavala [facility] 1.2.840.114 350.1.13.10 4.2.7.2.686 [id number] [facility] 2021-07-19 09:17:07 2021-07-19 09:17:07 Outpatient R LUCRECIA ZAVALA [facility] RAD [id number] [facility] 2021-07-19 09:17:07 2021-07-19 09:17:07 Hospital Encounter Lucrecia Zavala [facility] 1.2.840.114 350.1.13.10 4.2.7.2.686 [id number] [facility] 2021-07-17 00:00:00 2021-07-17 00:00:00 [facility] OFF[facility] BUILDING ONE 1..840.114 350.1.13.10 4.2.7.2.686 [id number] [facility] 2021-07-11 10:00:00 2021-07-11 11:18:09 Outpatient R LUCRECIA ZAVALA [facility] [id number] [facility] 2021-07-11 10:00:00 2021-07-11 11:18:09 Outpatient R LUCRECIA ZAVALA [facility] [id number] [facility] 2021-07-11 10:00:00 2021-07-11 11:18:09 [facility] 1.2.840.114 350.1.13.10 4.2.7.2.686 [id number] [facility] 2021-02-07 07:38:58 2021-02-07 23:59:00 Hospital Encounter Radiology [facility] 1.2.840.114 350.1.13.10 4.2.7.2.686 [id number] [facility] 2021-02-07 00:00:00 2021-02-07 00:00:00 Outpatient R RADIOLOGY [facility] [id number] [facility] 2021-01-15 10:43:26 2021-01-15 23:59:00 Hospital Encounter Radiology [facility] 1.2.840.114 350.1.13.10 4.2.7.2.686 [id number] [facility] 2021-01-15 10:42:46 2021-01-15 10:42:46 Hospital Encounter Radiology [facility] 1.2.840.114 350.1.13.10 4.2.7.2.686 [id number] [facility] 2021-01-15 00:00:00 2021-01-15 00:00:00 Outpatient R [facility] [id number] [facility] 2020-12-25 12:09:18 2020-12-25 23:59:00 Hospital Encounter Radiology [facility] 1.2.840.114 350.1.13.10 4.2.7.2.686 [id number] [facility] 2020-12-25 12:08:44 2020-12-25 12:08:44 Hospital Encounter Radiology [facility] 1.2.840.114 350.1.13.10 4.2.7.2.686 [id number] [facility] 2020-12-25 12:08:28 2020-12-25 12:08:28 Hospital Encounter Radiology [facility] 1.2.840.114 350.1.13.10 4.2.7.2.686 [id number] [facility] 2020-12-25 12:08:16 2020-12-25 12:08:16 Hospital Encounter Marcus Lockett [facility] 1.2.840.114 350.1.13.10 4.2.7.2.686 [id number] [facility] 2020-12-25 00:00:00 2020-12-25 00:00:00 Outpatient R RADIOLOGY [facility] [id number] [facility] 2020-10-18 06:05:00 2020-10-18 06:05:00 Outpatient Miller_S_AH VFP VFP [id number] [facility] 2020-08-10 11:21:00 2020-08-10 11:21:00 Outpatient Ige-Odunuga _J_AH VFP VFP [id number] [facility] 2020-08-09 06:23:00 2020-08-09 06:23:00 Outpatient Ige-Odunuga _J_AH VFP VFP [id number] [facility] 2020-08-07 04:09:00 2020-08-07 04:09:00 Outpatient Ige-Odunuga _J_AH VFP VFP [id number] [facility] 2020-08-07 00:00:00 2020-08-07 00:00:00 Bar Valle, COMM[employer]CIAL L[employer]IGATION PARALEGAL: [address] [facility], [address], [place] [address] , Ph. VFP [place] - [facility] - [email or web address]_ [place] [employer] [id number] [facility] 2019-11-23 06:33:00 2019-11-23 06:33:00 Outpatient Ige-Odunuga _J_AH VFP VFP [id number] [facility] 2019-11-14 09:49:00 2019-11-14 09:49:00 Outpatient Ige-Odunuga _J_AH VFP VFP [id number] [facility] 2019-11-10 11:14:00 2019-11-10 11:14:00 Outpatient Ige-Odunuga _J_AH VFP VFP [id number] [facility] 2019-11-10 00:00:00 2019-11-10 00:00:00 Tahira alberto [employer] PARALEGAL: [address], [address], [place] [address] , Ph. VFP [place] - [facility] - [email or web address]_ [place] [facility] [id number] [facility] 2019-07-06 07:18:00 2019-07-06 07:18:00 Outpatient Ige-Odunuga _J_AH VFP VF [id number] [facility] 2019-07-06 07:18:00 2019-07-06 07:18:00 Outpatient Ige-Odunuga _J_AH VFP VF [id number] [facility] Results Test Description Test Time Test Comments Results Result Comments Source CT SOFT TISSUE NECK WO CONTRAST 14:14:58 EXAM: CT SOFT TISSUE NECK WO CONTRAST History/Indication: Nonspecific lymph nodes described on recent ultrasound Comparison: Ultrasound 10/08/2023 Technique: Axial noncontrast images were obtained from supraventricularregion through the mediastinum. Findings: Visualized aspects of the brain, orbits and paranasal sinuseswere without worrisome findings. Within the limitations of a noncontrast study there were no mucosal ornodal lesions. Nonspecific thyroid heterogeneity has been assessedsonographically. [facility] HEAD NECK 19:04:28 HISTORY: Neck fullness and family history of thyroid cancer. TECHNIQUE: Thyroid gland is evaluated in multiple planes without and withcolor imaging. FINDINGS: Right lobe of the thyroid gland is ?4.4 x 2.0 x 1.6 cm ( 7.4 cc),isthmus portion is 1.2 mm in thickness, left lobe is 4.3 x 1.8 x 2.0 cm (8.0 cc) in size. Thyroid gland shows heterogeneous micronodular texture. 8 mm nodule is seenin deep midportion of the right lobe. Nodule#: 1* ?Maximum size: 0.8 cm* ?Location: Right thyroid lobe * ?Composition: Mixed cystic/solid (1) * ?Echogenicity: Hyperechoic or isoechoic (1) * ?Shape: Not taller than wide (0) * ?Margins: Smooth (0) * ?Echogenic foci: None (0) * ?ACR TI-RADS total points: 2* ?ACR TI-RADS risk category: TR 2 (2 points)* ?Multiple subcentimeter lymph nodes noted in both sides of the neck,including 6 mm lymph node adjacent to IVC, (level 2A), of unknown etiology.11 mm prominent lymph node in the left side of the neck shows normalsonographic morphology. 3 mm cyst is noted in the left parotid gland. [id number]* Test Item Value Reference Range Interpretation Comme nts POCT PREG (test code = 1605) Negative On board controls acceptable with C Line (test code = 3574) Yes POCT PREG LOT # (test code = 3575) POCT PREG TEST DATE ( test code = 3576) [facility] History and Physical Notes Date/Time Note Provider Source 2023-01-11 21:53:46 Formatting of this n ote is different from the original. PREOP H&P 01/12/2023 2:42 PM CC: Scheduled vulvar WLE HPI: Leeann Jeter is a 77 year old who presents for scheduled wide local excision due to multiple vulvar lesions (warts). She was last seen in clinic on 12/29 and denies any changes in her health history since then. Denies recent CP or SOB. Pre-op labs confirmed negative hepatitis C state; other serologies were also negative. REVIEW OF SYSTEMS: Constitutional: No fever/chills, no fatigue Cardiovascular: No chest pain, no palpitations Respiratory: No SOB, no cough Gastrointestinal: No n/v/d, no abdominal pain/cramping Genitourinary: no vaginal bleeding, no vaginal discharge, no dysuria, no hematuria HISTORIES: Past Medical History: Diagnosis Date Allergic rhinitis Anxiety Cataract Chronic hepatitis C Depression Fibromyalgia Hypertension Lupus Obesity Otitis media Peripheral vascular disease Senile purpura Past Surgical History: Procedure Laterality Date TONSILLECTOMY TUBAL LIGATION XR ANKLE 3+ VW RIGHT Allergies Allergen Reactions Aspirin Swelling and Anaphylaxis Fish [Seafood/Fish] Unknown - See comments Peanuts [Peanut] Swelling No current facility-administered medications for this encounter. Current Outpatient Medications Medication Sig Dispense Refill diphenhydramine HCl (BENADRYL ALLERGY ORAL) Take by mouth as needed. FOR LUPUS FLARE UPS furosemide 40 mg tablet Take 1 tablet by mouth every morning and evening. 60 tablet 1 lidocaine 2 % mucosal jelly Apply 2.5 Inches to area(s) every 6 (six) hours as needed (Pain). Apply 5mls to area every 6 hours as needed fro pain 30 mL 1 Family History Problem Relation Age of Onset Hypertension Mother Cancer Mother Hypertension Father Diabetes Sister Hypertension Sister Thyroid Cancer Sister Uterine Cancer Sister Thyroid Sister Cancer Sister Diabetes Brother Hypertension Brother Lung Cancer Brother Social History Socioeconomic History Marital status: Single Spouse name: Not on file Number of children: Not on file Years of education: Not on file Highest education level: Not on file Occupational History Not on file Tobacco Use Smoking status: Never Smokeless tobacco: Never Vaping Use Vaping Use: Never used Substance and Sexual Activity Alcohol use: Never Drug use: Never Sexual activity: Not Currently Partners: Male control/protection: Surgical, Post-menopausal Other Topics Concern Not on file Social History Narrative Not on file Social Determinants of Health Financial Resource Strain: Not on file Food Insecurity: Not on file Transportation Needs: Not on file Physical Activity: Not on file Stress: Not on file Social Connections: Not on file Intimate Partner Violence: Not on file Housing Stability: Not on file VITALS: Vitals: 01/12/23 1143 BP: (!) 150/69 Pulse: 83 Resp: 15 Temp: 37.5 ?C (99.5 ?F) SpO2: 94% PHYSICAL EXAM: Gen: A&Ox3, NAD Lungs: unlabored breathing Cardiology: peripheral pulses intact Abd: Soft, NTTP, ND, no rebound or guarding Ext: No calf tenderness LABS: Hgb 14.5 T&S B+ Vulvar biopsies 11/20/22 A. VULVA, LABIA. RIGHT, BIOPSY: - CONDYLOMA ACUMINATUM - NO HIGH GRADE DYSPLASIA OR MALIGNANCY IDENTIFIED B. VULVA, LABIA, RIGHT, BIOPSY: - CONDYLOMA ACUMINATUM - NO HIGH GRADE DYSPLASIA OR MALIGNANCY IDENTIFIED C. VULVA, LABIA, LEFT, BIOPSY: - CONDYLOMA ACUMINATUM - NO HIGH GRADE DYSPLASIA OR MALIGNANCY IDENTIFIED IMAGING: N/a ASSESSMENT/PLAN: Leeann Jeter is a 77 year old who presents for scheduled vulvar WLE due to multiple warty lesions. Will also perform EUA and pap smear due to difficulties in the office. She is doing well today and desires her scheduled procedure. PLAN: - Proceed to OR for above listed procedures - Preop abx: 2g ancef - DVT ppx: SCDs - Possible admission to OBOTUMOR postop Olaf Linton MD Associated attestation - Philipp Singh MD - 01/12/2023 3:11 PM CDT Oncology Teaching Physician Addendum I personally saw and evaluated Leeann Jeter. I discussed the patient's case with Dr. Linton. I personally reviewed the past medical history, laboratory results, radiology results, pathology results and Dr. Linton's note. I agree with the resident's findings and note as documented. Plan for WLE x2-3 Will send home if stable later today Instructions reviewed with patient and Philipp Singh MD [id number] Professor Gynecologic Oncology [facility] [place]/[facility] OG-OBSTETRICS & GYNECOLOGY [facility] Notes Date/Time Note Provider Source 2024-01-15 13:20:09 RETURNED CALL TO PATIENT THERE WAS NO ANSWER , I LEFT A V/M INFORMING PATIENT THAT DENI IS OUT OF OFFICE UNTIL THURSDAY AND RECOMMENDED URGENT CARE OR E/R [facility] 2024-01-15 12:44:31 Patient is calling for update on her Abscess of left buttock Would like a callback when its been sent. Please review and advise. BRANDON 01/13/24 Abscess of left buttock [facility] [id number] - [place] - [place]a [facility]SO AT [facility] [address] [place] [address] Dimitris Guerra [facility] 2024-01-14 14:25:47 Please review and advise. 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
--- NOTE | 2024-01-16 12:59 | ER ---
Nurse's Notes [facility] Name: Leeann Franz Age: 78 yrs Sex: Female : 1945 Arrival Date: 01/16/2024 Time: 12:08 Bed 16 Private MD: Diagnosis: Cutaneous abscess of buttock Presentation: 01/15 12:25 Chief complaint: Patient states: left buttock area is having pain. and patient reports ap3 "it is weird looking" patient reports the pain as a 12/10 on the pain scale. Coronavirus screen: At this time, the client does not indicate any symptoms associated with coronavirus-19. Ebola Screen: No symptoms or risks identified at this time. Initial Sepsis Screen: Does the patient meet any 2 criteria? No. Patient's initial sepsis screen is negative. Does the patient have a suspected source of infection? No. Patient's initial sepsis screen is negative. Risk Assessment: Do you want to hurt yourself or someone else? Patient reports no desire to harm self or others. Onset of symptoms is unknown. 12:25 Method Of Arrival: Ambulatory ap3 12:25 Acuity: ALESHIA 4 ap3 Triage Assessment: 12:29 General: Appears uncomfortable, Behavior is calm, cooperative, appropriate for age. ap3 Pain: Complains of pain in left gluteus brenda Pain currently is 10 out of 10 on a pain scale. Pain began gradually. Neuro: Level of Consciousness is awake, alert, obeys commands, Oriented to person, place, time, situation, Appropriate for age. Cardiovascular: Patient's skin is warm and dry. Respiratory: Airway is patent Respiratory effort is even, unlabored, Respiratory pattern is regular, symmetrical. Historical: - Allergies: 12:28 Aspirin; ap3 - PMHx: 12:28 Lupus erythematosus; HEP C; ap3 - Immunization history:: Client reports having NOT received the Covid vaccine. Flu vaccine is not up to date. - Infectious Disease History:: Denies. - Social history:: Smoking status: Patient denies any tobacco usage or history of. Screenin:13 [facility] ED Fall Risk Assessment (Adult) History of falling in the last 3 months, db including since admission No falls in past 3 months (0 pts) Confusion or Disorientation No (0 pts) Intoxicated or Sedated No (0 pts) Impaired Gait No (0 pts) Mobility Assist Device Used Altered Elimination No (0 pt) Score/Fall Risk Level 0 - 2 = Low Risk Oriented to surroundings, Maintained a safe environment. Abuse screen: Denies threats or abuse. Denies injuries from another. Nutritional screening: No deficits noted. Tuberculosis screening: No symptoms or risk factors identified. Assessment: 13:06 Reassessment: Patient appears in no apparent distress at this time. Patient and/or db family updated on plan of care and expected duration. Pain level reassessed. Patient is alert, oriented x 3, equal unlabored respirations, skin warm/dry/pink. LEFT BUTTOCK WOUND. Reassessment: KNIK DRAWN AROUND WOUND. General: Appears in no apparent distress. comfortable, Behavior is calm, cooperative. Neuro: Level of Consciousness is awake, alert, obeys commands, Oriented to person, place, time, situation. Respiratory: Airway is patent Respiratory effort is even, unlabored, Respiratory pattern is regular, symmetrical. 13:13 Reassessment: Patient appears in no apparent distress at this time. Patient and/or db family updated on plan of care and expected duration. Pain level reassessed. Patient is alert, oriented x 3, equal unlabored respirations, skin warm/dry/pink. Vital Signs: 12:25 BP 155 / 75; Pulse 75; Resp 17; Temp 97.9; Pulse Ox 98% ; Weight 101.6 kg; Height 5 ft. ap3 4 in. ; Pain 10/10; 12:25 Body Mass Index 38.45 (101.60 kg, 162.56 cm) ap3 12:25 Pain Scale: Adult ap3 ED Course: 12:15 Patient arrived in ED. mg5 12:17 Unique Phillips FNP-C is PHCP. kb 12:17 Ihsan Puga MD is Attending Physician. kb 12:28 Triage completed. ap3 12:30 Arm band placed on right wrist. ap3 13:06 Hetal Hayes, MICHOACANO is Primary Nurse. db 13:06 Dressings: non-adherent dressing x 1 buttocks and left gluteus brenda. db 13:07 Patient has correct armband on for positive identification. Bed in low position. Call db light in reach. Side rails up X 1. Warm blanket given. 13:13 Provided Education on: ANTIBIOTICS AND DISCHARGE/ FOLLOWUP. db 13:13 No provider procedures requiring assistance completed. Patient did not have IV access db during this emergency room visit. Administered Medications: No medications were administered Medication: 13:13 VIS not applicable for this client. db Outcome: 12:59 Discharge ordered by . kermit 13:13 Discharged to home ambulatory, db 13:13 Condition: stable 13:13 Discharge instructions given to patient, family, Instructed on discharge instructions, follow up and referral plans. Prescriptions given X 3, 13:15 Patient left the ED. db Signatures: Unique Phillips FNP-C FNP-Ckb Prokisch, Amanda, RN RN ap3 Hetal Hayes, RN RN Madeleine Hill mg5
--- NOTE | 2024-01-16 12:59 | EDPHYS ---
Physician Documentation [facility] Name: Leeann Franz Age: 78 yrs Sex: Female : 1945 Arrival Date: 01/16/2024 Time: 12:08 Bed 16 Private MD: ED Physician Ihsan Puga HPI: 01/15 12:56 This 78 yrs old Female presents to ER via Ambulatory with complaints of Hip Pain. kb 12:56 Pt is a 78 year old female who presents for abscess to left buttock that started last kb week. States she was seen by PCP 3 days ago and started on clindamycin, but it hasn't healed yet. Still having pain. denies fever. Reports she has been using a drying salve that was recommended by PCP and warm compresses.. Historical: - Allergies: 12:28 Aspirin; ap3 - PMHx: 12:28 Lupus erythematosus; HEP C; ap3 - Immunization history:: Client reports having NOT received the Covid vaccine. Flu vaccine is not up to date. - Infectious Disease History:: Denies. - Social history:: Smoking status: Patient denies any tobacco usage or history of. ROS: 12:56 Constitutional: As per HPI kb Exam: 12:55 Constitutional: This is a well developed, well nourished patient who is awake, alert, kb and in no acute distress. Head/Face: Normocephalic, atraumatic. ENT: Moist Mucous membranes Cardiovascular: Regular rate Respiratory: Respirations even and unlabored. No increased work of breathing. Talking in full sentences MS/ Extremity: Pulses equal, no cyanosis. Neurovascular intact. Full, normal range of motion. Neuro: Awake and alert, GCS 15, oriented to person, place, time, and situation. Moves all extremities. Normal gait. 12:55 Skin: abscess, that is small, of the left gluteus brenda, with drainage, with surrounding cellulitis, that is very mild, Vital Signs: 12:25 BP 155 / 75; Pulse 75; Resp 17; Temp 97.9; Pulse Ox 98% ; Weight 101.6 kg; Height 5 ft. ap3 4 in. ; Pain 10/10; 12:25 Body Mass Index 38.45 (101.60 kg, 162.56 cm) ap3 12:25 Pain Scale: Adult ap3 MDM: 12:17 Patient medically screened. kb 12:57 Differential diagnosis: abscess, cellulitis, insect bite. Data reviewed: vital signs, kb nurses notes. Test considered but Not performed: Ultrasound US considered but no fluctuance or drainable abscess palpated. Counseling: I had a detailed discussion with the patient and/or guardian regarding the historical points, exam findings, and any diagnostic results supporting the discharge/admit diagnosis, the need for outpatient follow up, a general surgeon, to return to the emergency department if symptoms worsen or persist or if there are any questions or concerns that arise at home. Administered Medications: No medications were administered Disposition: 13:35 Co-signature as Attending Physician, Ihsan Puga MD I reviewed the patient's care rt provided by the Advanced Practice Provider and agree with the diagnosis and treatment plan. Disposition Summary: 01/16/24 12:59 Discharge Ordered Notes: Location: Home kb Condition: Stable kb Diagnosis - Cutaneous abscess of buttock kb Followup: kb - With: Emergency Department - When: As needed - Reason: Worsening of condition Followup: kb - With: Private Physician - When: 2 - 3 days - Reason: Recheck today's complaints, Continuance of care, Re-evaluation by your physician Discharge Instructions: - Discharge Summary Sheet kb - Skin Abscess, [id number] kb - Cellulitis, Adult, [id number] kb Forms: - Medication Reconciliation Form kb - Antibiotic Education kb - Prescription Opioid Use kb - Patient Portal Instructions kb - Leadership Thank You Letter kb Prescriptions: - acetaminophen-codeine 300-30 mg Oral tablet - take 1 tablet ORAL route every 6 hours As needed; 12 tablet; Refills: 0, kb Product Selection Permitted - Cephalexin 500 mg Oral Capsule - take 1 capsule ORAL route every 8 hours for 10 days; 30 capsule; Refills: 0, kb Product Selection Permitted - Doxycycline Hyclate 100 mg Oral Tablet - take 1 tablet ORAL route every 12 hours; 20 tablet; Refills: 0, Product kb Selection Permitted Signatures: Unique Phillips FNP-C FNP-Ckb Prokisch, Amanda RN RN ap3 Hetal Hayes RN RN db Ihsan Puga MD MD rt
[2024-01-16 13:19] VITALS: BP 155/75; TEMP 97.9; O2SAT 98
== END 2024-01-16 13:15 | disposition home or self-care (01) ==
LOC: ER 12:08
DX: L02.31 Cutaneous abscess of buttock (principal)
CPT/HCPCS: 99283